=== PATIENT | male | born 1955 | race Caucasian/White ===

== ENCOUNTER 2019-09-05 07:14 | Emergency (ER) | payer OTHER ==
[~2019-09-05] VITALS: Ht 172.7 cm; Wt 118.2 kg
[2019-09-05] MEDS ORDERED: STATIN MED PO (07:28)
[2019-09-05] MEDS ORDERED: AMLO5TAB9 PO (07:28)
[2019-09-05] MEDS ORDERED: LOSA50TA64 PO (07:28)
[2019-09-05] MEDS ORDERED: LIDOCAINE 1% 10 ML VIAL INJ ONE (08:00)
[2019-09-05] MEDS ORDERED: POVIDONE-IODINE 10% 15 ML SOLUTION UD TP ONE (08:00)
[2019-09-05] MEDS ORDERED: CefTRIAXone SODIUM 1 GM/VIAL IM ONE (08:30)
[2019-09-05] MEDS ORDERED: SODIUM CHLORIDE 0.9% 1,000 ML IV ONE (09:15)
[2019-09-05 09:56] LABS: GLUCOSE,POINT OF CARE 108 MG/DL (70-110)
[2019-09-05 10:38] LABS: BASOPHILS % (AUTO) 0.5 % (0.0-2.0); EOSINOPHILS % (AUTO) 0.6 % (1.0-6.0); HEMATOCRIT 51.4 % (41-53); HEMOGLOBIN 17.3 g/dL (13.5-17.5); LYMPHOCYTES # (AUTO) 0.8 K/uL (1.0-4.8); LYMPHOCYTES % (AUTO) 5.1 % (22.0-44.0); MEAN CORPUSCULAR HEMOGLOBIN 27.7 pg (26.0-34.0); MEAN CORPUSCULAR HGB CONC 33.7 G/dL (31.0-37.0); MEAN CORPUSCULAR VOLUME 82 fL (80-100); MONOCYTES % (AUTO) 6.7 % (2.0-9.0); RED BLOOD CELL COUNT(AUTO) 6.24 MIL/uL (4.50-5.90); RED CELL DISTRIBUTION WIDTH 15.9 % (11.5-14.5)
[2019-09-05 10:41] LABS: NEUTROPHILS % (AUTO) 87.1 % (40.0-70.0)
[2019-09-05 11:10] LABS: CALCIUM, TOTAL 9.2 mg/dL (8.8-10.5); CREATININE 1.28 mg/dL (0.60-1.30); POTASSIUM 4.6 mmol/L (3.5-5.1)
[2019-09-05 11:17] LABS: PLATELET COUNT (AUTO) 219 K/uL (150-450)
[2019-09-05 11:18] LABS: ALBUMIN 3.9 g/dL (3.4-5.0); TOTAL PROTEIN, SERUM 8.7 g/dL (6.4-8.2)
[2019-09-05 12:41] VITALS: BP 155/89
== END 2019-09-05 12:51 | disposition home or self-care (01) ==
LOC: EMS 07:20
DX: L02.01 Cutaneous abscess of face (principal); K13.0 Diseases of lips; I10 Essential (primary) hypertension
CPT/HCPCS: 10060; 36415; 80053; 82962; 84484; 85025; 93005; 96372; 99285; J0696; J3490; J7030